=== PATIENT | female | born 1980 | race Caucasian/White ===

== ENCOUNTER 2021-01-08 21:05 | Emergency (ER) | payer OTHER ==
[~2021-01-08] VITALS: Ht 165.1 cm; Wt 77.1 kg
[2021-01-08] MEDS ORDERED: COZAAR100 MG (21:21)
[2021-01-08] MEDS ORDERED: VISTARIL50 MG PO (22:44)
== END 2021-01-08 22:56 | disposition home or self-care (01) ==
LOC: ER 21:05
DX: R00.2 Palpitations (principal); R06.02 Shortness of breath; F41.8 Other specified anxiety disorders